=== PATIENT | female | born 1950 | race Caucasian/White ===

== ENCOUNTER → 2019-11-21 06:48 | Outpatient (CLI) | payer MEDICARE, OTHER, SELFPAY ==
--- NOTE | 2019-11-21 08:54 | STRESSREP ---
Stress Test Report Date: 03-22-2019 Procedure: Pharmacologic stress nuclear imaging study Indications: Chest pain Consent: Per the patient Procedure: The patient underwent pharmacologic (Regadenoson) evaluation with a peak heart rate of 107 beats per minute (71%predicted maximal heart rate) and a peak blood pressure of 138/90 mmHg. The baseline ECG demonstrated normal sinus rhythm. The peak pharmacologic ECG demonstrated no obvious ECG changes. There were no cardiac dysrhythmias pretest, during pharmacologic infusion, or recovery. There was no complaint of chest discomfort during pharmacologic infusion or recovery. The examination was discontinued secondary to completion of protocol. Impression: 1. Pharmacologic (Regadenoson) evaluation 2. Peak pharmacologic ECG with no obvious ECG changes. 3. There were no cardiac dysrhythmias pretest, during pharmacologic infusion, or recovery. 4. Nuclear images pending Myocardial perfusion imaging study: Technique: The patient was injected with 11.9 millicuries of technetium 99m Cardiolite and subsequently rest SPECT Cardiolite nuclear imaging was obtained in the horizontal long, vertical long, and short axis views. The patient underwent pharmacologic (Regadenoson) evaluation with a peak heart rate of 107 beats per minute (71% percent predicted maximal heart rate) and a peak blood pressure of 138/90 mmHg. The patient was injected with 34.7 millicuries of technetium 99m Cardiolite and subsequently stress SPECT Cardiolite nuclear imaging was obtained in the horizontal long, vertical long, and short axis views. A gated Cardiolite study at peak stress was obtained. Interpretation: Rest and stress SPECT Cardiolite nuclear imaging status post realignment and normalization demonstrate relative uniform tracer uptake and myocardial perfusion appearing within normal limits. There is end systolic thickening and brightening. The gated Cardiolite study demonstrates myocardial thickening and inward wall motion. The reported LVEF is 66%. Impression: 1. Rest and stress SPECT Cardiolite nuclear imaging demonstrate relative uniform tracer uptake and myocardial perfusion appearing within normal limits. 2. The gated Cardiolite study reports an LVEF of 66%. This note was generated with [employer] software. It may contain incorrect words, spelling, and punctuation that were not noted in checking the note before signing.
== END ==
PROVIDERS: PCP Family Medicine; Referring Provider Family Medicine; Visit Provider Family Medicine
DX: R00.2 Palpitations (principal); R07.9 Chest pain, unspecified
CPT/HCPCS: 78452; 93017; A4216; J2785

== ENCOUNTER → 2024-06-13 | Outpatient (CLI) | payer MEDICARE, SELFPAY ==
--- NOTE | 2024-06-13 09:00 | ASPIG_PTH ---
PATIENT: BEVERLEY GALLEGO LOC: [place] #:[id number] AGE/SX: 73/F ROOM: RE06/13/[address]: Dr. Luke Whipple MD : [id number] BED: DIS: 06/13/2024 SPEC #: [id number] RECD: 06/13/24 11:58 STATUS: ISSA YOLA #: [id number] TORI: 06/13/24 09:[address]: Luke Whipple DEPT: CYTOLOGY RECD BY: Chad Brennan ENTERED: 06/13/24 11:59 SP TYPE: ASP OUT OTHR DR: Fariha Gutierrez, ENVELOPE STUFFER-C Tissues: A - Thyroid gland, NOS B - Thyroid gland, NOS Procedures: FNA Specimen Adequacy Special Stain Group II Cytology Other HEADER OPERATION: Fine needle aspiration of right and left thyroid nodules PRE-OP DIAGNOSIS: Thyroid nodules TISSUE SUBMITTED: A- Right thyroid nodule fluid for cytology, B- Left thyroid nodule fluid for cytology DIAGNOSIS CYTOLOGY A. Right thyroid nodule, FNA: * No malignant cells identified. * [address] [facility] category II. B. Left thyroid nodule, FNA: * No malignant cells identified. * [address] [facility] category II. COMMENT The specimen is evaluated at the time of biopsy by Dr. Williamson. Immediate Evaluation = A1- Adequate. A2- Adequate. A3- Adequate. B1- Rare cells, blood. B2- Adequate. B3- Blood. B4- One group of cells. CYTOLOGY STUDY Slides are reviewed. CYTOLOGY GROSS A. Received is 30 ml of cytolyt with particles and 6 smears labeled with the patient's name and and designated per the requisition as Right thyroid nodule. Submitted for cytology (cytospin x1). B. Received is 30 ml of cytolyt with particles and 8 smears labeled with the patient's name and and designated per the requisition as Left thyroid nodule. Submitted for cytology (cytospin x1). Mr 06/13/2024 CPT: 08742 x2
== END | disposition home or self-care (01) ==
PROVIDERS: PCP Registered Nurse; Referring Provider Surgery; Visit Provider Surgery
DX: E04.2 Nontoxic multinodular goiter (principal)
CPT/HCPCS: 36415; 86376; 86800; 88161; 88172; 88313

== ENCOUNTER → 2024-06-13 | Outpatient (CLI) | payer MEDICARE, SELFPAY ==
[2024-06-15 08:09] LABS: Thyroglobulin Antibody < 1.0 IU/mL (0.0-0.9); Thyroid Peroxidase AB 11 IU/mL (0-34)
== END | disposition home or self-care (01) ==
PROVIDERS: PCP Registered Nurse; Referring Provider Surgery; Visit Provider Surgery
DX: E04.1 Nontoxic single thyroid nodule (principal)
CPT/HCPCS: 36415; 86376; 86800

== ENCOUNTER → 2024-06-20 | Outpatient (CLI) | payer MEDICARE, SELFPAY ==
[2024-06-20 11:45] LABS: Absolute Lymphocyte Count 5.59 X10^3/uL (0.83-4.51); Basophil# 0.04 X10^3/uL; Basophil% 0.4 % (0-1); Eosinophil# 0.07 X10^3/uL; Eosinophils% 0.7 % (0-5); Hematocrit 40.5 % (37-47); Hemoglobin 13.6 g/dL (12.0-15.0); Lymphocyte # 5.59 X10^3/ul (0.83-4.51); Lymphocyte % 54.1 % (19-41); Mean Corp Hgb Conc 33.6 g/dL (32-36); Mean Corpuscular Hgb 29.2 pg (27.0-32.0); Mean Corpuscular Volume 86.9 fL (81-99); Mean Platelet Vol. 10.4 fl (6.2-12.0); Monocyte# 0.56 X10^3/uL; Monocyte% 5.4 % (0-10); NRBC Flagged by Analyzer 0 % (0-5); Neutrophil # 4.04 X10^3/uL (2.7-7.7); Neutrophil % 39.1 % (47-70); POSITIVE DIFFERENTIAL YES; Platelet Count 143 K/mm3 (150-450); RBC Distribution Width CV 12.8 % (11.6-14.6); RBC Distribution Width SD 40.1 fl (35.1-43.9); Red Blood Count 4.66 M/mm3 (4.2-5.4); White Blood Count 10.3 K/mm3 (4.4-11.0)
[2024-06-20 12:17] LABS: ALB/GLOB Ratio 1.6 RATIO (0.9-2.4); AST(SGOT) 19 U/L (<=31); Alanine Aminotransfer ALT/SGPT 12 U/L (<=34); Alkaline Phosphatase 79 U/L (35-104); Anion Gap 9 (5-15); BUN 12 mg/dL (4-19); BUN/Creat Ratio 16.7 RATIO (10-20); Calcium,Total 9.6 mg/dL (7.6-11.0); Carbon Dioxide 27.7 mmol/L (21.0-32.0); Chloride 104 mmol/L (98-108); Creatinine, Serum 0.69 mg/dL (0.70-1.20); EST Glomerular Filtration Rate 90 (>60); Globulin 2.5 g/dL (2.2-4.2); Glucose 113 mg/dL (70-99); LDH 184 U/L (84-246); Potassium 4.2 mmol/L (3.3-5.1); Protein, Total 6.5 g/dL (5.9-8.4); Sodium Level 141 mmol/L (133-145); Total Bilirubin 0.66 mg/dL (0.00-1.30)
[2024-06-20 19:32] LABS: Xtra Tube EP Lab EXTRA TUBE
[2024-06-23 08:08] LABS: Thyroid Stim Immunoglob <0.10 IU/L (0.00-0.55)
== END | disposition home or self-care (01) ==
LOC: PAVLAB 11:19
PROVIDERS: Internal Medicine Hematology & Oncology; PCP Registered Nurse; Referring Provider Surgery; Visit Provider Surgery
DX: E04.2 Nontoxic multinodular goiter (principal); D72.820 Lymphocytosis (symptomatic)
CPT/HCPCS: 36415; 80053; 83615; 84445; 85025

== ENCOUNTER → 2024-06-28 | Outpatient (CLI) | payer MEDICARE, SELFPAY ==
--- NOTE | 2024-06-28 09:40 | NM_ITS ---
PROCEDURE: THYROID UPTAKE SINGLE OR MULT 06/28/2024 REASON FOR EXAM: THYROID NODULES TECHNIQUE: Thyroid uptake calculated at 4 and 24 hours after 309 microcuries I-123 orally as a capsule. Nuclear medicine thyroid scan was not performed. COMPARISON: Thyroid ultrasound 04/26/2024. FINDINGS: Thyroid Uptake: 4 hours: 8.2 % (normal range 5 to 15%) 24 hours: 23.7 % (normal range 10 to 35%) Thyroid Scan: Patient unable to complete thyroid scan imaging. NM/Thyroid Uptake Single or Mult IMPRESSION: Normal thyroid uptake at 4 and 24 hours. Patient unable to complete thyroid sc an due to anxiety. Reading Location: [id number]
== END | disposition home or self-care (01) ==
LOC: NM 09:33
PROVIDERS: PCP Registered Nurse; Referring Provider Surgery; Visit Provider Surgery
DX: E04.1 Nontoxic single thyroid nodule (principal)
CPT/HCPCS: 78012; A9516

== ENCOUNTER → 2024-08-16 | Outpatient (CLI) | payer MEDICARE, SELFPAY ==
--- NOTE | 2024-08-16 17:39 | CT_ITS ---
PROCEDURE: SOFT TISSUE NECK WITH CONTRAST 08/16/2024 REASON FOR EXAM: GOITER TECHNIQUE: SOFT TISSUE NECK WITH CONTRAST CONTRAST: 75 cc Isovue One or more dose reduction techniques were used (e.g., Automated exposure control, adjustment of the mA and/or kV according to patient size, use of iterative reconstruction technique). COMPARISON: 04/24/2024 FINDINGS: Again noted is a thyroid goiter with enlargement of the left and right lobes. The right lobe extends behind the esophagus. The transverse diameter of the trachea is mildly narrowed. The superior extent is at the level of the superior cornu of the thyroid cartilage. The inferior extent is 1.3 cm below the sternal notch. This indicates a small degree of substernal extension. On the current study, and on the prior study in retrospect, there are abnormal retroperitoneal lymph nodes on the left with scattered nonenlarged lymph nodes in the submandibular space and internal jugular chain bilaterally. These nodes in retrospect present previously. No mucosal mass or asymmetry. Lung apices are clear. CT/Soft Tissue Neck WITH Contrast IMPRESSION: Redemonstration of thyroid goiter which appears slightly larger than on the meliza or study with a slightly greater degree of substernal extension. Persistent abnormal cervical lymph nodes are seen in the retropectoral region and low internal jugular chain on the left than right without necrosis. In retrospect present previousl y. Can not exclude systemic disorder such as lupus, lymphoma, etc.. Consider tissue sampling. Reading Location[facility]
== END | disposition home or self-care (01) ==
LOC: CT 17:37
PROVIDERS: PCP Registered Nurse; Referring Provider Surgery; Visit Provider Surgery
DX: E04.9 Nontoxic goiter, unspecified (principal)
CPT/HCPCS: 70491; Q9967; A4216